=== PATIENT | male | born 1990 | race African-American/Black ===

== ENCOUNTER 2021-10-17 09:09 | Emergency (ER) | payer SELFPAY ==
--- OUTSIDE RECORDS SUMMARY | 2021-10-17 09:12 | XMS REPORT | Continuity of Care Document ---
:1990 Author Organization [facility] t Address [address] [place] [address] Care Team Providers Name Role Phone Unavailable Unavailable Unavailable Problems This patient has no known problems. Allergies, Adverse Reactions, Alerts This patient has no known allergies or adverse reactions. Medications This patient has no known medications. Procedures This patient has no known procedures. Results This patient has no known results.
--- NOTE | 2021-10-17 09:51 | ER ---
Nurse's Notes [facility] Name: Fabricio Mora II Age: 31 yrs Sex: Male : 1990 Arrival Date: 10/17/2021 Time: 09:11 Bed 7 Private MD: Diagnosis: Muscle spasm of back Presentation: 10/17 09:27 Chief complaint: Patient states: Int CP for 1 week. Spine and mid back pain constant ll1 for about 1 week. "Squeezing" feeling to spine area. No fever or cough. Coronavirus screen: Vaccine status: Patient reports being unvaccinated. Client denies travel out of the [place] in the last 14 days. At this time, the client does not indicate any symptoms associated with coronavirus-19. Ebola Screen: Patient denies travel to an Ebola-affected area in the 21 days before illness onset. Initial Sepsis Screen: Does the patient meet any 2 criteria? No. Patient's initial sepsis screen is negative. Does the patient have a suspected source of infection? No. Patient's initial sepsis screen is negative. Risk Assessment: Do you want to hurt yourself or someone else? Patient reports no desire to harm self or others. Onset of symptoms was October 10, 2021. 09:27 Method Of Arrival: Ambulatory ll1 09:27 Acuity: ARON 3 ll1 Triage Assessment: 09:28 General: Appears in no apparent distress. Behavior is calm, cooperative, appropriate ll1 for age. Pain: Complains of pain in back Pain currently is 8 out of 10 on a pain scale. Quality of pain is described as squeezing. Cardiovascular: Reports chest pain. Musculoskeletal: Reports pain in back. Historical: - Allergies: 09:26 No Known Allergies; ll1 - PMHx: 09:26 None; ll1 - PSHx: 09:26 pyloric stenosis; ll1 - Immunization history:: Client reports having NOT received the Covid vaccine. - Social history:: Smoking status: Patient denies any tobacco usage or history of. Screenin:45 Abuse screen: Denies threats or abuse. Nutritional screening: No deficits noted. vg1 Tuberculosis screening: No symptoms or risk factors identified. Fall Risk No fall in past 12 months (0 pts). No secondary diagnosis (0 pts). No IV (0 pts). Ambulatory Aid- None/Bed Rest/Nurse Assist (0 pts). Gait- Normal/Bed Rest/Wheelchair (0 pts) Mental Status- Oriented to own ability (0 pts). Total Santiago Fall Scale indicates No Risk (0-24 pts). Assessment: 09:45 General: Appears in no apparent distress. comfortable, Behavior is calm, cooperative. vg1 Pain: Complains of pain in anterior aspect of left upper chest mid back and lower back Pain does not radiate. Pain currently is 8 out of 10 on a pain scale. Pain began x1 week. Neuro: Level of Consciousness is awake, alert, obeys commands, Oriented to person, place, time, situation. Cardiovascular: Patient's skin is warm and dry. Respiratory: Airway is patent Respiratory effort is even, unlabored, Breath sounds are clear bilaterally. Denies cough, shortness of breath. GI: Reports nausea, since x 2 day. : Denies burning with urination, urinary frequency. EENT: No signs and/or symptoms were reported regarding the EENT system. Derm: Skin is intact, is healthy with good turgor. Musculoskeletal: Circulation, motion, and sensation intact. 10:07 Reassessment: Patient appears in no apparent distress at this time. No changes from jd3 previously documented assessment. Patient and/or family updated on plan of care and expected duration. Pain level reassessed. Patient is alert, oriented x 3, equal unlabored respirations, skin warm/dry/pink. Vital Signs: 09:27 BP 128 / 91; Pulse 92; Resp 16; Temp 98.1; Pulse Ox 100% ; Weight 77.11 kg; Height 6 ll1 ft. 1 in. (185.42 cm); Pain 8/10; 09:27 Body Mass Index 22.43 (77.11 kg, 185.42 cm) ll1 ED Course: 09:11 Patient arrived in ED. mr 09:23 Mina Costa PA is PHCP. jr8 09:23 Kd Redd MD is Attending Physician. jr8 09:26 Arm band placed on Patient placed in an exam room, on a stretcher. ll1 09:28 Triage completed. ll1 09:37 Sepideh Cole, RN is Primary Nurse. vg1 09:45 Patient has correct armband on for positive identification. Placed in gown. Bed in low vg1 position. Call light in reach. Side rails up X 1. bronze chaser on. Pulse ox on. NIBP on. 09:45 No provider procedures requiring assistance completed. Patient maintains SpO2 vg1 saturation greater than 95% on room air. 10:08 Patient did not have IV access during this emergency room visit. jd3 Administered Medications: No medications were administered Outcome: 09:51 Discharge ordered by . rubi 10:08 Discharged to home ambulatory. jd3 10:08 Condition: stable 10:08 Discharge instructions given to patient, Instructed on discharge instructions, follow up and referral plans. medication usage, Demonstrated understanding of instructions, follow-up care, medications. 10:08 Patient left the ED. jd3 Signatures: Lavonne Adhikari mr Mina Costa PA PA jr8 Wayne Pritchard RN RN jd3 Sepideh Cole RN RN vg1 Adrián Gaspar RN RN ll1 Corrections: (The following items were deleted from the chart) 10:08 10:08 Discharge instructions given to patient, Instructed on discharge instructions, jd3 follow up and referral plans. Demonstrated understanding of instructions, follow-up care, jd3
--- NOTE | 2021-10-17 09:51 | EDPHYS ---
Physician Documentation [facility] Name: Fabricio Mora II Age: 31 yrs Sex: Male : 1990 Arrival Date: 10/17/2021 Time: 09:11 Bed 7 Private MD: ED Physician Kd Redd HPI: 10/17 09:51 This 31 yrs old Black Male presents to ER via Ambulatory with complaints of Back Pain. jr8 09:51 Onset: The symptoms/episode began/occurred gradually, 1 week(s) ago. Associated signs jr8 and symptoms: The patient has no apparent associated signs or symptoms. Modifying factors: The patient symptoms are alleviated by nothing, the patient symptoms are aggravated by movement, stimulation. The patient has not experienced similar symptoms in the past. The patient has not recently seen a physician. Patient stated that he has had mid right-sided back pain with a squeezing sensation around his spine for about 1 week. Stated that it is worse with deep breath, bending, and activity. Concerned that is not going away since its been approximately 1 week. Historical: - Allergies: 09:26 No Known Allergies; ll1 - PMHx: 09:26 None; ll1 - PSHx: 09:26 pyloric stenosis; ll1 - Immunization history:: Client reports having NOT received the Covid vaccine. - Social history:: Smoking status: Patient denies any tobacco usage or history of. ROS: 09:51 Eyes: Negative for injury, pain, redness, and discharge, ENT: Negative for injury, jr8 pain, and discharge, Neck: Negative for injury, pain, and swelling, Cardiovascular: Negative for chest pain, palpitations, and edema, Respiratory: Negative for shortness of breath, cough, wheezing, and pleuritic chest pain, Abdomen/GI: Negative for abdominal pain, nausea, vomiting, diarrhea, and constipation, MS/Extremity: Negative for injury and deformity, Skin: Negative for injury, rash, and discoloration, Neuro: Negative for headache, weakness, numbness, tingling, and seizure. 09:51 Back: Positive for pain at rest, pain with movement, of the right mid back, Negative for radiated pain. Exam: 09:51 Constitutional: This is a well developed, well nourished patient who is awake, alert, jr8 and in no acute distress. Neck: Trachea midline, no thyromegaly or masses palpated, and no cervical lymphadenopathy. Supple, full range of motion without nuchal rigidity, or vertebral point tenderness. No Meningismus. Chest/axilla: Normal chest wall appearance and motion. Nontender with no deformity. No lesions are appreciated. Cardiovascular: Regular rate and rhythm with a normal S1 and S2. No gallops, murmurs, or rubs. Normal PMI, no JVD. No pulse deficits. Respiratory: Lungs have equal breath sounds bilaterally, clear to auscultation and percussion. No rales, rhonchi or wheezes noted. No increased work of breathing, no retractions or nasal flaring. Abdomen/GI: Soft, non-tender, with normal bowel sounds. No distension or tympany. No guarding or rebound. No evidence of tenderness throughout. Skin: Warm, dry with normal turgor. Normal color with no rashes, no lesions, and no evidence of cellulitis. MS/ Extremity: Pulses equal, no cyanosis. Neurovascular intact. Full, normal range of motion. Neuro: Awake and alert, GCS 15, oriented to person, place, time, and situation. Cranial nerves II-XII grossly intact. Motor strength 5/5 in all extremities. Sensory grossly intact. 09:51 Back: pain, that is mild, of the right mid back, ROM is painful, normal spinal alignment noted, CVA tenderness, is absent, muscle spasm, is appreciated in the right mid back. Vital Signs: 09:27 BP 128 / 91; Pulse 92; Resp 16; Temp 98.1; Pulse Ox 100% ; Weight 77.11 kg; Height 6 ll1 ft. 1 in. (185.42 cm); Pain 8/10; 09:27 Body Mass Index 22.43 (77.11 kg, 185.42 cm) ll1 MDM: 09:24 Patient medically screened. jr8 09:49 Data reviewed: vital signs, nurses notes, and as a result, I will discharge patient. jr8 Data interpreted: Pulse oximetry: on room air is 100 %. Interpretation: normal. Counseling: I had a detailed discussion with the patient and/or guardian regarding: the historical points, exam findings, and any diagnostic results supporting the discharge/admit diagnosis, the need for outpatient follow up, a family practitioner, to return to the emergency department if symptoms worsen or persist or if there are any questions or concerns that arise at home. ED course: Discussed with patient that on physical exam he has reproducible muscle tension and spasm to the right paraspinous muscles. This is most consistent with what he has been feeling. As such we will put him on muscle relaxant and anti-inflammatory. Told to rest and can do heating pads and warm baths at home as well. If you were to worsen to come back for further evaluation but looks good otherwise and is hemodynamically stable and without any other acute findings. Patient good with this plan at this time and will continue to rest and come back if worse.. 10/17 09:29 Order name: EKG; Complete Time: 09:30 ll1 10/17 09:29 Order name: EKG - Nurse/Tech; Complete Time: : ll1 Administered Medications: No medications were administered Disposition: 18:45 Co-signature as Attending Physician, Kd Redd MD I agree with the assessment and micah plan of care. Disposition Summary: 10/17/21 09:51 Discharge Ordered Location: Home jr Problem: new jr8 Symptoms: are unchanged jr8 Condition: Stable jr8 Diagnosis - Muscle spasm of back jr8 Followup: jr8 - With: Private Physician - When: 1 week - Reason: Recheck today's complaints, Re-evaluation by your physician Discharge Instructions: - Discharge Summary Sheet jr8 - Muscle Cramps and Spasms jr8 - Back Exercises, [id number] jr8 - Heat Therapy jr8 Forms: - Medication Reconciliation Form jr8 - Thank You Letter jr8 - Antibiotic Education jr8 - Prescription Opioid Use jr8 - Work release form eb Prescriptions: - Ibuprofen 800 mg Oral Tablet - take 1 tablet by ORAL route every 12 hours As needed take with food; 20 tablet; jr8 Refills: 0, Product Selection Permitted - Skelaxin 800 mg Oral Tablet - take 1 tablet by ORAL route every 8 hours As needed; 30 tablet; Refills: 0, jr8 Product Selection Permitted Signatures: Kd Redd MD MD cha Roszak, Josh, PA PA jr8 Adrián Gaspar RN RN ll1
[2021-10-17 12:48] VITALS: BP 128/91; TEMP 98.1; O2SAT 100
== END 2021-10-17 10:08 | disposition home or self-care (01) ==
LOC: ER 09:09
DX: M62.830 Muscle spasm of back (principal)
CPT/HCPCS: 93005; 99284